=== PATIENT | male | born 1985 | race Caucasian/White ===

== ENCOUNTER 2017-04-12 22:34 | Emergency (ER) | payer MEDICAID ==
[~2017-04-12] VITALS: Ht 177.8 cm; Wt 68.0 kg
[~2017-04-12 22:34] MED LIST: LITH150C7 PO; PHENOBARBITAL PO; thorazine
[2017-04-13] MEDS ORDERED: SODIUM CHLORIDE 0.9% 1,000 ML IV ONE ×2 (00:18)
[2017-04-13] MEDS ORDERED: MORPHINE SULFATE 4 MG/ML CPJ (NOT FOR IM USE) IV STA (00:18)
[2017-04-13] MEDS ORDERED: ONDANSETRON HCL 4MG/2ML VIAL IV STA (00:18)
[2017-04-13] MEDS ORDERED: LORAZEPAM 2MG/ML CPJ IV ONE (00:30)
[2017-04-13 12:12] VITALS: BP 126/76
== END 2017-04-13 13:19 | disposition home or self-care (01) ==
LOC: ER 22:34
DX: S00.211A Abrasion of right eyelid and periocular area, initial encounter (principal); M54.6 Pain in thoracic spine; R07.9 Chest pain, unspecified; M79.651 Pain in right thigh; F17.200 Nicotine dependence, unspecified, uncomplicated; Y09 Assault by unspecified means
CPT/HCPCS: 70450; 70486; 71010; 71250; 74176; 96374; 96375; 99284; J2060; J2270; J2405; Z7610; J7030

== ENCOUNTER 2017-08-21 00:08 | Emergency (ER) | payer MEDICAID ==
[~2017-08-21] VITALS: Ht 177.8 cm; Wt 68.0 kg
[~2017-08-21 00:08] MED LIST changes: +LITH150C PO; -LITH150C7 PO
[2017-08-21] MEDS ORDERED: PHENOBARBITAL 100MG TABLET PO ONE (03:00)
[2017-08-21 03:27] VITALS: BP 127/80
== END 2017-08-21 03:27 | disposition home or self-care (01) ==
LOC: ER 00:08
DX: G40.909 Epilepsy, unspecified, not intractable, without status epilepticus (principal); F17.200 Nicotine dependence, unspecified, uncomplicated; F12.10 Cannabis abuse, uncomplicated; F15.10 Other stimulant abuse, uncomplicated; Z91.14 Patient's other noncompliance with medication regimen
CPT/HCPCS: 99282; Z7610

== ENCOUNTER 2017-11-18 02:06 | Emergency (ER) | payer MEDICAID ==
[~2017-11-18] VITALS: Ht 177.8 cm; Wt 68.0 kg
[2017-11-18] MEDS ORDERED: PHENOBARBITAL 100MG TABLET PO ONE (03:15)
[2017-11-18 03:30] LABS: CHLORIDE 106 mEq/L (98-107)
[2017-11-18 03:40] LABS: BASOPHILS % 0.4 % (0.0-2.0); EOSINOPHILS % 2.4 % (0.0-5.0); HEMATOCRIT. 38.6 % (42.0-52.0); HEMOGLOBIN. 13.6 g/dL (14.0-18.0); LYMPHOCYTES % 43.2 % (20.0-50.0); MEAN CORPUSCULAR HEMOGLOBIN 31.9 pg (28.0-32.0); MEAN CORPUSCULAR VOLUME 90.5 fL (80.0-94.0); MEAN PLATELET VOLUME 7.1 fl (7.4-10.4); MONOCYTES % 6.2 % (2.0-8.0); NEUTROPHILS % 47.8 % (40.0-76.0); PLATELET 285 x1000/uL (130-400); RED BLOOD CELL COUNT 4.27 mill/uL (4.7-6.1); RED CELL DISTRIBUTION WIDTH 12.7 % (11.6-14.6)
[2017-11-18 04:57] VITALS: BP 129/76
== END 2017-11-18 04:58 | disposition home or self-care (01) ==
LOC: ER 02:06
DX: G40.909 Epilepsy, unspecified, not intractable, without status epilepticus (principal); R07.81 Pleurodynia; F17.200 Nicotine dependence, unspecified, uncomplicated; F12.10 Cannabis abuse, uncomplicated; F11.10 Opioid abuse, uncomplicated; F15.10 Other stimulant abuse, uncomplicated; Z91.14 Patient's other noncompliance with medication regimen
CPT/HCPCS: 36415; 71045; 80053; 85025; 99285

== ENCOUNTER 2017-12-14 07:26 | Emergency (ER) | payer MEDICAID ==
[~2017-12-14] VITALS: Ht 177.8 cm; Wt 68.0 kg
[2017-12-14] MEDS ORDERED: SODIUM CHLORIDE 0.9% 1,000 ML IV ONE (08:02)
[2017-12-14 08:58] LABS: ETHANOL BLOOD < 10 mg/dL
[2017-12-14 09:03] LABS: PHENOBARBITAL 2.3 ug/mL (15.0-40.0)
[2017-12-14] MEDS ORDERED: PHENOBARBITAL 100MG TABLET PO ONE (09:15)
[2017-12-14] MEDS ORDERED: PHENOBARBITAL 60MG TABLET PO ONE (09:15)
[2017-12-14 09:40] LABS: *AMPHETAMINES SCREEN URINE PRESUMTIVE POSITIVE (NEGATIVE); *BARBITURATES SCREEN URINE PRESUMTIVE POSITIVE (NEGATIVE); *BENZODIAZEPINES SCREEN URINE NEGATIVE (NEGATIVE); *COCAINE SCREEN URINE NEGATIVE (NEGATIVE)
[2017-12-14 09:41] LABS: CANNABINOID URINE SCREEN PRESUMTIVE POSITIVE (NEGATIVE); METHADONE URINE SCREEN NEGATIVE (NEGATIVE); OPIATES URINE SCREEN PRESUMTIVE POSITIVE (NEGATIVE); PHENCYCLIDINE URINE SCREEN NEGATIVE (NEGATIVE)
[2017-12-14 11:01] VITALS: BP 118/74
== END 2017-12-14 11:06 | disposition home or self-care (01) ==
LOC: ER 07:44
DX: R56.9 Unspecified convulsions (principal); F15.10 Other stimulant abuse, uncomplicated; I10 Essential (primary) hypertension; F17.200 Nicotine dependence, unspecified, uncomplicated; F12.10 Cannabis abuse, uncomplicated; F14.10 Cocaine abuse, uncomplicated; Z88.8 Allergy status to other drugs, medicaments and biological substances
CPT/HCPCS: 36415; 80184; 80305; 96360; 96361; 99285; G0482; J7030; Z7610

== ENCOUNTER 2018-01-06 11:03 | Emergency (ER) | payer MEDICAID ==
[~2018-01-06] VITALS: Ht 177.8 cm; Wt 68.0 kg
[2018-01-06 13:02] LABS: BASOPHILS % 0.6 % (0.0-2.0); EOSINOPHILS % 2.6 % (0.0-5.0); HEMATOCRIT. 43.4 % (42.0-52.0); HEMOGLOBIN. 14.7 g/dL (14.0-18.0); LYMPHOCYTES % 45.8 % (20.0-50.0); MEAN CORPUSCULAR HEMOGLOBIN 30.6 pg (28.0-32.0); MEAN CORPUSCULAR VOLUME 90.1 fL (80.0-94.0); MEAN PLATELET VOLUME 6.7 fl (7.4-10.4); MONOCYTES % 6.9 % (2.0-8.0); NEUTROPHILS % 44.1 % (40.0-76.0); PLATELET 261 x1000/uL (130-400); RED BLOOD CELL COUNT 4.81 mill/uL (4.7-6.1); RED CELL DISTRIBUTION WIDTH 13.7 % (11.6-14.6)
[2018-01-06 13:07] LABS: CHLORIDE 102 mEq/L (98-107)
[2018-01-06 13:12] LABS: PROTHROMBIN TIME 10.1 sec (9.4-11.6)
[2018-01-06] MEDS ORDERED: SODIUM CHLORIDE 0.9% 1,000 ML IV ONE (15:00)
[2018-01-06 15:07] LABS: VALPROIC ACID < 3.0 ug/mL (50-100)
[2018-01-06] MEDS ORDERED: TETANUS, DIPHTHERIA, PERTUSSIS VAC/PF 0.5ML (>7YR OLD) IM ONE (17:45)
[2018-01-06] MEDS ORDERED: CEPHALEXIN 500MG CAPSULE PO ONE (17:45)
[2018-01-06] MEDS ORDERED: PHENOBARBITAL 30 MG TABLET PO ONE (17:45)
[2018-01-06 18:11] VITALS: BP 117/74
== END 2018-01-06 18:47 | disposition home or self-care (01) ==
LOC: ER 11:03
DX: G40.909 Epilepsy, unspecified, not intractable, without status epilepticus (principal); E86.0 Dehydration; E87.3 Alkalosis; Z48.89 Encounter for other specified surgical aftercare; Z91.14 Patient's other noncompliance with medication regimen; F12.90 Cannabis use, unspecified, uncomplicated; R53.1 Weakness; R26.9 Unspecified abnormalities of gait and mobility; Z59.0 Homelessness; Z74.1 Need for assistance with personal care; Z88.8 Allergy status to other drugs, medicaments and biological substances; Z91.19 Patient's noncompliance with other medical treatment and regimen; Z86.59 Personal history of other mental and behavioral disorders
CPT/HCPCS: 36415; 71045; 80053; 80165; 83036; 83880; 84484; 85025; 85610; 90471; 90715; 93005; 99285; Z7610

== ENCOUNTER 2019-06-16 20:47 | Emergency (ER) | payer MEDICAID ==
[~2019-06-16] VITALS: Ht 177.8 cm; Wt 74.0 kg
[2019-06-16] MEDS ORDERED: SODIUM CHLORIDE 0.9% 1,000 ML IV ONE (21:33)
[2019-06-17 00:38] LABS: CHLORIDE 105 mEq/L (98-107)
[2019-06-17 00:43] LABS: ETHANOL BLOOD < 10 mg/dL
[2019-06-17 00:45] VITALS: BP 114/69
== END 2019-06-17 01:54 | disposition home or self-care (01) ==
LOC: ER 20:47
DX: R56.9 Unspecified convulsions (principal); F17.200 Nicotine dependence, unspecified, uncomplicated; F12.10 Cannabis abuse, uncomplicated; F32.9 Major depressive disorder, single episode, unspecified; Z88.1 Allergy status to other antibiotic agents; Z88.2 Allergy status to sulfonamides
CPT/HCPCS: 36415; 80053; 80320; 96360; 99283; J7030; G0480

== ENCOUNTER 2019-11-09 13:08 | Emergency (ER) | payer MEDICAID ==
[~2019-11-09] VITALS: Ht 177.8 cm; Wt 90.0 kg
[2019-11-09 14:10] VITALS: BP 148/80
== END 2019-11-09 16:04 | disposition left against medical advice (07) ==
LOC: ER 13:08
DX: R45.1 Restlessness and agitation (principal); Z53.21 Procedure and treatment not carried out due to patient leaving prior to being seen by health care provider

== ENCOUNTER 2020-01-18 09:24 | Emergency (ER) | payer MEDICAID ==
[~2020-01-18] VITALS: Ht 177.8 cm; Wt 86.0 kg
[2020-01-18] MEDS ORDERED: CEFTRIAXONE SODIUM 1 G/VIAL IM ONE (11:30)
[2020-01-18] MEDS ORDERED: LIDOCAINE HCL 1% 20ML VIAL (Pyxis) INJ INFIL ONE (11:30)
[2020-01-18 12:00] VITALS: BP 123/88
== END 2020-01-18 13:24 | disposition home or self-care (01) ==
LOC: ER 09:24
DX: L03.012 Cellulitis of left finger (principal); F60.9 Personality disorder, unspecified; R45.1 Restlessness and agitation; F12.10 Cannabis abuse, uncomplicated; F11.10 Opioid abuse, uncomplicated; F15.10 Other stimulant abuse, uncomplicated; F17.200 Nicotine dependence, unspecified, uncomplicated; Z89.022 Acquired absence of left finger(s); Z88.8 Allergy status to other drugs, medicaments and biological substances; Z79.899 Other long term (current) drug therapy
CPT/HCPCS: 73120; 99283; J0696; J3490

== ENCOUNTER 2020-01-22 19:20 | Emergency (ER) | payer MEDICAID ==
[~2020-01-22] VITALS: Ht 175.3 cm; Wt 84.0 kg
[2020-01-22 21:03] LABS: BASOPHILS % 0.3 % (0.0-2.0); EOSINOPHILS % 0.8 % (0.0-5.0); HEMATOCRIT. 41.6 % (42.0-52.0); HEMOGLOBIN. 14.4 g/dL (14.0-18.0); LYMPHOCYTES % 17.4 % (20.0-50.0); MEAN CORPUSCULAR HEMOGLOBIN 30.4 pg (28.0-32.0); MEAN CORPUSCULAR VOLUME 87.8 fL (80.0-94.0); MEAN PLATELET VOLUME 6.5 fl (7.4-10.4); MONOCYTES % 7.7 % (2.0-8.0); NEUTROPHILS % 73.8 % (40.0-76.0); PLATELET 387 x1000/uL (130-400); RED BLOOD CELL COUNT 4.73 mill/uL (4.7-6.1); RED CELL DISTRIBUTION WIDTH 13.2 % (11.6-14.6)
[2020-01-22 21:10] LABS: CHLORIDE 98 mEq/L (98-107)
[2020-01-22 22:13] LABS: CLARITY URINE CLEAR (CLEAR); COLOR URINE DARK YELLOW (YELLOW); KETONES URINE TRACE (NEGATIVE); LEUKOCYTE ESTERASE URINE TRACE (NEGATIVE); NITRITE URINE NEGATIVE (NEGATIVE); OCCULT BLOOD URINE NEGATIVE (NEGATIVE); PROTEIN URINE TRACE (NEGATIVE); SPECIFIC GRAVITY URINE 1.035 (1.005-1.030)
[2020-01-22] MEDS ORDERED: SODIUM CHLORIDE 0.9% 1000ML BAG (SEPSIS BOLUS) IV ONE (22:45)
[2020-01-22] MEDS ORDERED: PIPERACILLIN/TAZ 3.375G PREMIX 50 ML IV ONE (22:45)
[2020-01-22] MEDS ORDERED: VANCOMYCIN 1 G PREMIX 200 ML IV ONE (22:45)
[2020-01-22] MEDS ORDERED: KETOROLAC 15MG/ML VIAL IV ONE (23:15)
[2020-01-23 04:05] VITALS: BP 122/94
== END 2020-01-23 04:32 | disposition short-term general hospital (02) ==
LOC: ER 19:20
DX: L03.012 Cellulitis of left finger (principal); M65.9 Synovitis and tenosynovitis, unspecified; F41.9 Anxiety disorder, unspecified; F31.9 Bipolar disorder, unspecified; F20.9 Schizophrenia, unspecified; F12.10 Cannabis abuse, uncomplicated; F15.10 Other stimulant abuse, uncomplicated; Z79.899 Other long term (current) drug therapy; Z88.8 Allergy status to other drugs, medicaments and biological substances
CPT/HCPCS: 36415; 73130; 80053; 81003; 83605; 84145; 85025; 87040; 87086; 96365; 96368; 96375; 99285; J1885; J2543; J3370; J7030